=== PATIENT | female | born 1970 | race Caucasian/White ===

== ENCOUNTER 2016-09-01 18:03 | Emergency (ER) ==
[2016-09-01] MEDS ORDERED: ASPIRIN PO ONE (18:12)
[2016-09-01] MEDS ORDERED: ASPIRIN ONE (18:14)
--- NOTE | 2016-09-01 18:32 | PROVIDER DOCUMENTATION ---
HPI-Chest Pain - General Chief Complaint: Chest Pain Stated Complaint: CHEST PAIN Time Seen by Provider: 09/01/16 18:19 Source: patient Allergies/Adverse Reactions: Patient Allergies Allergy/AdvReac Type Severity Reaction Status Date / Time No Known Allergies Allergy Verified 09/01/16 18:10 Home Medications: Home Medication List Medication Instructions Recorded Confirmed Last Taken Type Famotidine [Pepcid] 40 mg PO DAILY 09/01/16 09/01/16 Unknown History Lisdexamfetamine Dimesylate 70 mg PO DAILY 09/01/16 09/01/16 Unknown History [Vyvanse] Sertraline [Zoloft] 50 mg PO DAILY 09/01/16 09/01/16 Unknown History Spironolactone [Aldactone] 25 mg PO DAILY 09/01/16 09/01/16 Unknown History - History of Present Illness-CP Nature of Presenting Problem: 45 Y/O F presents to ED with Chest Pain. Pt states that she has had 2 episodes of chest pain with similar feelings less than 2 weeks. The first one occurred on the [place] stated that she couldn't get off and she felt chest [id number] that went into her back and up to her throat. Stated today when she left the area around [facility] approximately an hour ago that she had the same feeling so she decided to come here. Pt stated that she wasn't under any stress. Location: reports: central Chest Pain Radiation: reports: back, epigastric Quality of Pain: reports: pressure Severity in ED: moderate Onset/Duration: 1 hour ago, this evening Timing: still present Associated Symptoms: reports: back pain. denies: abdominal pain, fever/chills, nausea, vomiting Nitro Today/Relief: no nitro taken today Aspirin Treatment Today: no aspirin today Prior Chest Pain/Cardiac Workup: reports: no prior chest pain Similar Symptoms Previously?: No Recently Seen Here or By Another Healthcare Provider: No Review of Systems - Adult - REVIEW OF SYSTEMS - ADULT Constitutional: denies: chills, fever Eyes: reports: no symptoms reported Ears, Nose, Mouth & Throat: reports: throat pain Cardiovascular: reports: chest pain Respiratory: reports: shortness of breath. denies: cough Gastrointestinal: reports: no symptoms reported Genitourinary: reports: no symptoms reported Musculoskeletal: reports: no symptoms reported Integumentary: reports: no symptoms reported Neurological: reports: no symptoms reported Psychiatric: reports: no symptoms reported Endocrine: reports: no symptoms reported Hematologic/Lymphatic: reports: no symptoms reported Allergic/Immunologic: reports: no symptoms reported All Other Systems: Reviewed and Negative Past History - Adult - PAST MEDICAL HISTORY-ADULT Review of Records: reports: Old Records Reviewed, Nursing Assessment Review, Medications Reviewed, Social history reviewed & non-contributory. Major Childhood Illnesses: reports: history unknown Cardiovascular: reports: denies history Respiratory: reports: denies history Gastrointestinal: reports: denies history Obstetrical/Gynecological: reports: denies history Genitourinary: reports: denies history Musculoskeletal: reports: denies history Neurological: reports: denies history Psychiatric: reports: anxiety Endocrine/Immune: reports: denies history Other Conditions: reports: denies history - PRIOR SURGERIES/PROCEDURES Surgical/Procedure History: reports: none - PRIOR HOSPITALIZATIONS Prior Hospitalizations: reports: none - IMMUNIZATION STATUS Childhood Immunizations: See Nurse Assessment Flu Vaccine: See Nurse Assessment - FAMILY HISTORY Family History: reviewed, not pertinent - SOCIAL HISTORY Smoking: non-smoker Substance Use: none/never Alcohol Use Frequency: never Living Situation: family Physical Exam-General - CONSTITUTIONAL General Appearance: appears well, alert, no apparent distress - EYES Eyes: PERRL/EOMI, pink conjunctivae, fundi clear, no AV nicking - HEAD, EARS, NOSE, MOUTH & THROAT HENMT: normocephalic/atraumatic, moist mucous membranes, normal ENT inspection, TMs normal, pharynx normal - NECK Neck: non-tender, full range of motion, supple, normal inspection - RESPIRATORY Respiratory: chest non-tender, lungs clear, normal breath sounds - CARDIOVASCULAR Cardiovascular: normal peripheral pulses, regular rate, rhythm - GASTROINTESTINAL (ABDOMEN) Abdominal Exam: normal bowel sounds, non tender, soft - LYMPHATIC Lymphatic: no adenopathy - MUSCULOSKELETAL Back Exam: normal inspection, no CVA tenderness, no vertebral tenderness Extremity: normal range of motion, non-tender, normal gait - SKIN Integumentary: normal color, normal turgor, warm/dry - 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 - PSYCHIATRIC Psych/Mental Status: normal mood/affect, normal thought content, normal thought process, oriented x 3 Progress - PLAN OF CARE/RESULTS Progress/Plan/Lab Results: Laboratory Tests 09/01/16 09/01/16 09/01/16 18:40 18:40 18:40 WBC 10.39 RBC 4.67 Hgb 14.7 Hct 43.6 MCV 93.4 MCH 31.5 H MCHC 33.7 RDW Std Deviation 11.9 Plt Count 232 MPV 11.0 H Immature Gran % (Auto) 0.5 Neut % (Auto) 76.0 H Lymph % (Auto) 14.2 L [place] % (Auto) 9.2 Eos % (Auto) 0.1 Baso % (Auto) 0.0 Immature Gran # (Auto) 0.05 H Neut # (Auto) 7.89 H Lymph # (Auto) 1.48 [place] # (Auto) 0.96 H Eos # (Auto) 0.01 Baso # (Auto) 0.00 Sodium 137 Potassium 3.6 Chloride 98 Carbon Dioxide 29 Anion Gap 11 BUN 16 Creatinine 0.8 Estimated GFR/1.73 m2 > 60 BUN/Creatinine Ratio 20 Glucose 107 H Calculated Osmolality 275 Calcium 9.3 Total Bilirubin 0.20 AST 14 ALT 14 Alkaline Phosphatase 74 Creatine Kinase 32 Troponin T < 0.010 Total Protein 7.0 Albumin 4.1 Globulin 3.0 Albumin/Globulin Ratio 1.0 Amylase 78 Lipase 58 09/01/16 09/01/16 20:28 20:28 WBC RBC Hgb Hct MCV MCH MCHC RDW Std Deviation Plt Count MPV Immature Gran % (Auto) Neut % (Auto) Lymph % (Auto) [place] % (Auto) Eos % (Auto) Baso % (Auto) Immature Gran # (Auto) Neut # (Auto) Lymph # (Auto) [place] # (Auto) Eos # (Auto) Baso # (Auto) Sodium Potassium Chloride Carbon Dioxide Anion Gap BUN Creatinine Estimated GFR/1.73 m2 BUN/Creatinine Ratio Glucose Calculated Osmolality Calcium Total Bilirubin AST ALT Alkaline Phosphatase Creatine Kinase 31 Troponin T < 0.010 Total Protein Albumin Globulin Albumin/Globulin Ratio Amylase Lipase Vital Signs - 24 hr 09/01/16 09/01/16 09/01/16 18:06 19:17 21:21 Temperature 98 F 97.8 F Pulse Rate 88 70 78 Respiratory 18 16 16 Rate Blood Pressure 178/104 135/94 144/93 O2 Sat by Pulse 100 98 99 Oximetry Orders Category Date Time Status ABDOMEN/PELVIS W/CONTRAST [CT] Stat Exams 09/01/16 18:28 Draft CHEST-2 VIEWS [RAD] Stat Exams 09/01/16 20:50 Taken AMYLASE [CHEM] Stat Lab 09/01/16 18:40 Completed CBC WITH DIFF [HEME] Stat Lab 09/01/16 18:40 Completed CK PROFILE [SP CHEM] Stat Lab 09/01/16 18:40 Completed CK PROFILE [SP CHEM] Stat Lab 09/01/16 20:28 Completed COMPREHENSIVE METABOLIC PANEL [CHEM] Stat Lab 09/01/16 18:40 Completed LIPASE [CHEM] Stat Lab 09/01/16 18:40 Completed TROPONIN T Stat Lab 09/01/16 18:40 Completed TROPONIN T Stat Lab 09/01/16 20:28 Completed Aspirin Med 09/01/16 18:14 Discontinued 325 mg .ROUTE .STK-MED ONE Aspirin Med 09/01/16 18:12 Discontinued 325 mg PO NOW ONE EKG [EKG] Stat Ther 09/01/16 18:12 Draft EKG [EKG] Stat Ther 09/01/16 20:17 Draft - EKG 1 Time of EKG reading by physician:: 18:04 EKG Read and Signed by:: Jonel Nixon EKG Interpretation (*Must complete 3 of following elements*): Normal Rate: 89 Rhythm: NSR Comments: Normal ECG 2 Time of EKG reading by physician:: 20:30 EKG Read and Signed by:: Jonel Nixon EKG Interpretation (*Must complete 3 of following elements*): Normal Rate: 68 Rhythm: NSR Comments: Normal ECG - XRAY 1 XRAY Study: Chest Impression: Normal XRAY Interpretation: NAD - CT/MRI 1 CT Study: Abdomen Impression: Normal (Cholecystectomy, gastric bypass, No abscess, No Hydronephrosis) CT Results: Normal Departure - Departure Time of Disposition Order: 22:41 DIAGNOSIS: Atypical chest pain Disposition: HOME 01 Certified Medical Emergency: Emergent Condition: Fair Additional Instructions: Follow up with Dr. Del Rio. ED Follow Up Instructions: You have been treated by a care provider in the Emergency Department. These instructions are being provided to you so you can have an understanding of how to care for yourself upon discharge. Upon discharge from the Emergency Department, you are responsible for making arrangements for follow-up care by a physician of your choice. Take all prescribed medications as directed. Return to the Emergency Department immediately for any new or worsening symptoms. You may call the Physician Referral phone number at [phone] to obtain a list of Physicians who are taking new patients. Referrals: Gabrielle Dove MD [Primary Care Provider] - German Del Rio MD [STAFF PHYSICIAN] - Attestation - Scribe Verification/Attestation Scribe:: Krissy Reyna Acting as Scribe for:: Jonel Nixon Scribe documention review:: This chart was documented by a scribe and accurately reflects the service the provider performed and the decisions made by the provider.
[2016-09-01 18:52] LABS: MANUAL DIFF NEEDED? NO
[2016-09-01 18:56] LABS: EOS# 0.01 X1000 (0.0-0.7); EOS% 0.1 % (0.0-10.0); HEMATOCRIT 43.6 % (37.0-47.0); HEMOGLOBIN 14.7 g/dL (12.0-16.0); IMM GRAN# 0.05 X1000 (0.0-0.04); IMM GRAN% 0.5 % (0.0-0.5); LYMPH# 1.48 X1000 (1.2-3.4); LYMPH% 14.2 % (20.5-51.1); MCH 31.5 PG (27-31); MCHC 33.7 g/dL (33-37); MCV 93.4 FL (81-99); MONO# 0.96 X1000 (0.11-0.59); MONO% 9.2 % (1.7-9.3); PLT 232 X1000 (130-400); RBC 4.67 XMIL (4.2-5.4)
[2016-09-01 19:30] LABS: AGAP 11; ALBUMIN 4.1 g/dL (3.5-5.0); ALKALINE PHOSPHATASE 74 U/L (32-104); AMYLASE 78 U/L (20-200); BUN 16 mg/dL (8-22); CALCIUM 9.3 mg/dL (8.8-10.2); CHLORIDE 98 mmol/L (98-107); CK PROFILE 32 U/L (24-173); COSMO 275; GOT 14 U/L (10-30); GPT 14 U/L (10-36); LIPASE 58 U/L (13-60); POTASSIUM 3.6 mmol/L (3.5-5.1); SODIUM 137 mmol/L (136-145); TCO2 29 mmol/L (25-35)
--- NOTE | 2016-09-01 20:43 | EKG Report ---
Test Performed on : 09/01/2016 8:30:13 PM Test Reason : pain Blood Pressure : / mmHG Vent. Rate : 068 BPM Atrial Rate : 068 BPM P-R Int : 148 ms QRS Dur : 082 ms QT Int : 384 ms P-R-T Axes : 082 065 061 degrees QTc Int : 408 ms Normal sinus rhythm. Normal ECG When compared with ECG of 01-SEP-2016 18:04, (Unconfirmed) T wave amplitude has increased in Lateral leads Unconfirmed Result
--- NOTE | 2016-09-01 20:44 | EKG Report ---
Test Performed on : 09/01/2016 6:04:23 PM Test Reason : CP Blood Pressure : / mmHG Vent. Rate : 089 BPM Atrial Rate : 089 BPM P-R Int : 126 ms QRS Dur : 084 ms QT Int : 356 ms P-R-T Axes : 027 055 041 degrees QTc Int : 433 ms Normal sinus rhythm. Normal ECG No previous ECGs available Unconfirmed Result
[2016-09-01 21:24] VITALS: BP 144/93
--- NOTE | 2016-09-01 22:23 | Diag Imaging Result Document ---
PROCEDURE NAME: ABDOMEN/PELVIS W/CONTRAST - 09/01/2016 STUDY: CT abdomen and pelvis with intravenous contrast. COMPARISON: No comparison films. The gallbladder has been removed. There has been a prior gastric bypass procedure. Normal liver, spleen, pancreas, and adrenal glands. Normal enhancement of the kidneys. No hydronephrosis. The urinary bladder is only mildly distended. Normal uterus. Neither ovary is enlarged. There are bilateral pars defects to the L5 vertebra with mild subluxation of L5 on S1. IMPRESSION: 1. Cholecystectomy and gastric bypass. 2. Constipation. 3. 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 A preliminary report was given at 8:27 p.m.
[2016-09-01] MEDS ORDERED: CARAFATE LIQUID PO ONE (22:42)
[2016-09-01] MEDS ORDERED: NORCO-7.5 PO ONE (22:42)
--- NOTE | 2016-09-02 06:46 | Diag Imaging Result Document ---
PROCEDURE NAME: CHEST-2 VIEWS - 09/01/2016 FRONTAL AND LATERAL CHEST, TWO VIEWS: COMPARISON: Compared to 08/06/2013. FINDINGS: The lungs are well expanded. The heart is not enlarged. The vessels are not distended. No pleural effusions. There are no infiltrates. IMPRESSION: No pneumonia.
== END 2016-09-01 23:05 | disposition home or self-care (01) ==
LOC: P.ED 18:03
DX: R07.89 Other chest pain (principal); K59.00 Constipation, unspecified; M54.9 Dorsalgia, unspecified; J02.9 Acute pharyngitis, unspecified; R10.13 Epigastric pain; R06.02 Shortness of breath; F41.9 Anxiety disorder, unspecified; Z79.899 Other long term (current) drug therapy; Z98.84 Bariatric surgery status
CPT/HCPCS: 71020; 74177; 80053; 82150; 82550; 83690; 84484; 85025; 93005; Q9967